=== PATIENT | male | born 1960 | race Caucasian/White ===

== ENCOUNTER → 2018-02-16 | Outpatient (CLI) | payer OTHER ==
[2018-02-16 11:00] LABS: BASOPHILS ABSOLUTE AUTO 0.09 K/mm3 (0.00-0.23); BASOPHILS PERCENT AUTO 1 % (0-2); EOSINOPHILS ABSOLUTE AUTO 0.05 K/mm3 (0.00-0.68); EOSINOPHILS PERCENT AUTO 1 % (0-6); Hematocrit 42.5 % (37.0-53.0); Hemoglobin 14.7 g/dL (13.5-17.5); IMMATURE GRAN ABSOLUTE AUTO 0.03 K/mm3 (0.00-0.10); IMMATURE GRAN PERCENT AUTO 0 % (0-1); LYMPHOCYTES ABSOLUTE AUTO 1.33 K/mm3 (0.84-5.20); LYMPHOCYTES PERCENT AUTO 13 % (21-46); MONOCYTES PERCENT AUTO 6 % (4-13); Mean Corpuscular HGB 32.6 pg (26.0-34.0); Mean Corpuscular HGB Conc 34.6 g/dL (31.5-36.5); Mean Corpuscular Volume 94 fL (80-100); Mean Platelet Volume 9.2 fL (9.1-12.4); NEUTROPHILS ABSOLUTE AUTO 7.79 K/mm3 (1.96-9.15); NEUTROPHILS PERCENT AUTO 79 % (41-73); Platelet Count 279 K/mm3 (150-400); RDW Coefficient Variation 12.4 % (11.7-14.2); Red Blood Cell Count 4.51 M/mm3 (4.30-5.90); White Blood Cell Count 9.89 K/mm3 (4.00-11.30)
[2018-02-16 11:19] LABS: Alanine Aminotransfer (ALT/SGP 20 U/L (12-78); Albumin/Globulin Ratio 1.4 (0.8-1.8); Alk Phos 85 U/L (40-126); Anion Gap 7 mmol/L (6-16); Aspartate Aminotrans (AST/SGOT 14 U/L (12-37); Bilirubin, Total 0.4 mg/dL (0.1-1.0); Blood Urea Nitrogen 14 mg/dL (8-24); CO2, Blood 28 mmol/L (21-32); Calcium, Blood 9.4 mg/dL (8.5-10.1); Chloride, Blood 105 mmol/L (98-108); Creatinine, Blood 1.08 mg/dL (0.60-1.20); Globulin, Blood 2.8 g/dL (2.2-4.0); Glomerular Filtration Rate >60 (60-); Glucose, Blood 133 mg/dL (70-99); Potassium, Blood 4.2 mmol/L (3.5-5.5); Sodium, Blood 140 mmol/L (136-145); Total Protein, Blood 6.8 g/dL (6.4-8.2)
[2018-02-16 11:20] LABS: Troponin I <0.017 ng/mL (0.000-0.040)
== END | disposition home or self-care (01) ==
LOC: LAB SHORT 10:56 → LAB EV 10:56
PROVIDERS: Family Medicine
DX: R07.1 Chest pain on breathing (principal)
CPT/HCPCS: 80053; 84484; 85025; 85379

== ENCOUNTER 2020-05-21 09:27 | Inpatient (IN) | payer OTHER ==
[~2020-05-21] VITALS: Ht 182.9 cm; Wt 58.0 kg
[2020-05-21 09:50] LABS: Chloride (POC) 106 mmol/L (98-108); Glucose (ISTAT POC) 137 mg/dL (70-99); Potassium (POC) 3.9 mmol/L (3.5-5.5); Sodium (POC) 142 mmol/L (135-148); Total CO2 (POC) 26 mmol/L (21-32)
[2020-05-21 10:21] LABS: BASOPHILS ABSOLUTE AUTO 0.12 K/mm3 (0.00-0.23); BASOPHILS PERCENT AUTO 1 % (0-2); EOSINOPHILS ABSOLUTE AUTO 0.16 K/mm3 (0.00-0.68); EOSINOPHILS PERCENT AUTO 1 % (0-6); Hematocrit 43.7 % (37.0-53.0); Hemoglobin 14.1 g/dL (13.5-17.5); IMMATURE GRAN ABSOLUTE AUTO 0.08 K/mm3 (0.00-0.10); IMMATURE GRAN PERCENT AUTO 1 % (0-1); LYMPHOCYTES ABSOLUTE AUTO 2.34 K/mm3 (0.84-5.20); LYMPHOCYTES PERCENT AUTO 14 % (21-46); MONOCYTES ABSOLUTE AUTO 0.78 K/mm3 (0.16-1.47); MONOCYTES PERCENT AUTO 5 % (4-13); Mean Corpuscular HGB 31.9 pg (26.0-34.0); Mean Corpuscular HGB Conc 32.3 g/dL (31.5-36.5); Mean Corpuscular Volume 99 fL (80-100); Mean Platelet Volume 9.9 fL (9.1-12.4); NEUTROPHILS ABSOLUTE AUTO 13.41 K/mm3 (1.96-9.15); NEUTROPHILS PERCENT AUTO 79 % (41-73); Platelet Count 244 K/mm3 (150-400); RDW Coefficient Variation 12.1 % (11.7-14.2); RDW Standard Deviation 44.1 fL (35.1-46.3); Red Blood Cell Count 4.42 M/mm3 (4.30-5.90); White Blood Cell Count 16.89 K/mm3 (4.00-11.30)
[2020-05-21 10:28] LABS: Magnesium, Blood 2.2 mg/dL (1.6-2.4)
[2020-05-21 10:29] LABS: Anion Gap 8 mmol/L (6-16); Blood Urea Nitrogen 17 mg/dL (8-24); Bun/Creatinine Ratio 17.3 (12.0-20.0); CO2, Blood 23 mmol/L (21-32); Calcium, Blood 8.6 mg/dL (8.5-10.1); Chloride, Blood 111 mmol/L (98-108); Creatinine, Blood 0.98 mg/dL (0.60-1.20); Glomerular Filtration Rate >60 (60-); Glucose, Blood 138 mg/dL (70-99); Potassium, Blood 4.2 mmol/L (3.5-5.5); Sodium, Blood 142 mmol/L (136-145)
[2020-05-21] MEDS ORDERED: Methimazole5 MG PO (11:15)
[2020-05-21 11:26] LABS: Free Thyroxine 0.99 ng/dL (0.70-1.60)
[2020-05-21 11:29] LABS: Thyroid Stimulating Hormone 2.48 uIU/mL (0.360-4.800)
[2020-05-21] MEDS ORDERED: ROPINIROLE HCL1 MG PO (12:41)
[2020-05-21] MEDS ORDERED: TRAZ50 PO (12:41)
--- NOTE | 2020-05-21 18:04 | NUR ---
SHIFT SUMMARY PT AXO, PLEASANT AND COOPERATIVE WITH CARE. PT ON TELE, SINUS DEE AT 45. PT UP TO BATHROOM WITH SBA. PT BECAME DIZZY WHEN HE TURNED AROUND TO SIT ON BED. PT DENIES PAIN. SOB WITH EXERTION. 98-100% ON RA. PT ARRIVED TO ROOM AT 1400 VIA GURNEY. ADMIT COMPLETE. PT STATES THAT HE WANTS TO BE FULL CODE. PATIENT STATES THAT AT HOME HE IS "PRETTY HEALTHY AND ACTIVE." BED IN LOW POSITION, CALL LIGHT WITHIN REACH, SPOUSE PRESENT IN ROOM AT THIS TIME.
--- NOTE | 2020-05-21 22:41 | NUR ---
PATIENT HAS HAD HICCUPS FOR APPROX 3 HOURS. ASKING FOR MEDICATION TO STOP THEM. SPOKE WITH HOSPITALIST AND SHE WAS CONCERNED THAT SINCE THE PATIENT WAS ADMITTED FOR DIZZINESS THAT [facility] WOULDN'T BE A SAFE CHOICE FOR HIM. PATIENT ALSO REQUESTED TRAZADONE 50MG FOR SLEEP. THIS MEDICATION WAS NOT ON HIS HOME MED REC. ONE TIME DOSE ORDERED. WILL CONTINUE CLOSE MONITORING
--- NOTE | 2020-05-22 02:52 | NUR ---
EMT P SUMMARY Patient slept well after approximately 2200 when he was able to get his trazodone for sleep and his hiccups ended simultaneously. Neuro checks remain unchanged with only intermittant dizziness remaining. Patient was a little hesitant to call for assistance to get to bathroom as he was still having intermittant dizzy spells, but thought "he could feel them coming on". it was explained that at this point, we are still working on why he was having them, and that it was not saf for him to ambulate on his own. No complaints of pain or discomfort overnight
[2020-05-22 11:00] LABS: BASOPHILS ABSOLUTE AUTO 0.04 K/mm3 (0.00-0.23); BASOPHILS PERCENT AUTO 0 % (0-2); EOSINOPHILS ABSOLUTE AUTO 0.06 K/mm3 (0.00-0.68); EOSINOPHILS PERCENT AUTO 1 % (0-6); Hematocrit 37.5 % (37.0-53.0); Hemoglobin 12.5 g/dL (13.5-17.5); IMMATURE GRAN ABSOLUTE AUTO 0.04 K/mm3 (0.00-0.10); IMMATURE GRAN PERCENT AUTO 0 % (0-1); LYMPHOCYTES PERCENT AUTO 16 % (21-46); MONOCYTES PERCENT AUTO 6 % (4-13); Mean Corpuscular HGB 32.1 pg (26.0-34.0); Mean Corpuscular HGB Conc 33.3 g/dL (31.5-36.5); Mean Platelet Volume 9.3 fL (9.1-12.4); NEUTROPHILS ABSOLUTE AUTO 8.02 K/mm3 (1.96-9.15); NEUTROPHILS PERCENT AUTO 77 % (41-73); Platelet Count 216 K/mm3 (150-400); RDW Coefficient Variation 12.2 % (11.7-14.2); RDW Standard Deviation 43.2 fL (35.1-46.3); Red Blood Cell Count 3.89 M/mm3 (4.30-5.90); White Blood Cell Count 10.46 K/mm3 (4.00-11.30)
[2020-05-22 11:14] LABS: Mean Corpuscular Volume 96 fL (80-100)
[2020-05-22 11:28] LABS: Alanine Aminotransfer (ALT/SGP 23 U/L (12-78); Albumin, Blood 3.4 g/dL (3.4-5.0); Albumin/Globulin Ratio 1.4 (0.8-1.8); Alk Phos 71 U/L (50-136); Anion Gap 5 mmol/L (6-16); Aspartate Aminotrans (AST/SGOT 12 U/L (12-37); Bilirubin, Total 0.8 mg/dL (0.1-1.0); Blood Urea Nitrogen 15 mg/dL (8-24); Bun/Creatinine Ratio 14.9 (12.0-20.0); CO2, Blood 27 mmol/L (21-32); Calcium, Blood 8.4 mg/dL (8.5-10.1); Chloride, Blood 109 mmol/L (98-108); Creatinine, Blood 1.01 mg/dL (0.60-1.20); Globulin, Blood 2.4 g/dL (2.2-4.0); Glomerular Filtration Rate >60 (60-); Glucose, Blood 113 mg/dL (70-99); Potassium, Blood 3.9 mmol/L (3.5-5.5); Sodium, Blood 141 mmol/L (136-145); Total Protein, Blood 5.8 g/dL (6.4-8.2); Troponin I <0.015 ng/mL (0.000-0.040)
--- NOTE | 2020-05-22 12:21 | NUR ---
echocardiogram complete
[2020-05-22] MEDS ORDERED: ASPI81CH PO (19:14)
[2020-05-22] MEDS ORDERED: MECL25 PO (19:15)
--- NOTE | 2020-05-22 19:49 | NUR ---
DISCHARGE NOTE- PT WAS DISCHARGED HOME COLIN. MEDS FAXED TO [facility] ON [address] PER PT REQUEST. PT AND SPOUSE WERE GIVEN VERBAL AND WRITTEN DISCHARGE INSTRUCTIONS AND ACKNOWLEDGED UNDERSTANDING OF THEM. NO S&S OF DISTRESS VISIBLE AT THE TIME OF DISCHARGE. PT SPOUSE WALKED OUT AND PT WAS ESCORTED OUT VIA WC BY THE SHIP RUNNER. NO FURTHER QUESTIONS AT THE TIME OF DISCHARGE. IV AND TELE DC'D PRIOR TO DISCHARGE.
== END 2020-05-22 19:20 | disposition home or self-care (01) | DRG 149 ==
LOC: ER 09:27 → MEDS 12:36
PROVIDERS: Emergency Medicine; Internal Medicine Endocrinology, Diabetes & Metabolism; ADMIT Internal Medicine Gastroenterology
DX: H81.10 Benign paroxysmal vertigo, unspecified ear (principal); E05.01 Thyrotoxicosis with diffuse goiter with thyrotoxic crisis or storm; F17.210 Nicotine dependence, cigarettes, uncomplicated; G25.81 Restless legs syndrome; H55.00 Unspecified nystagmus; J44.9 Chronic obstructive pulmonary disease, unspecified; I95.9 Hypotension, unspecified; E86.0 Dehydration; R11.2 Nausea with vomiting, unspecified; R00.1 Bradycardia, unspecified
CPT/HCPCS: 36415; 70450; 80047; 80048; 80053; 83735; 84439; 84443; 84484; 85014; 85025; 93005; 93010; 93306; 93880; 96361; 96374; 96375; 99285-25; A9270-GY; J0780; J1200; J2405; J7030; J7120; U0002

== ENCOUNTER → 2021-04-16 | Outpatient (CLI) | payer OTHER ==
[~2021-04-16] MED LIST: ASPI81CH PO; MECL25 PO; Methimazole5 MG PO; ROPINIROLE HCL1 MG PO; TRAZ50 PO
[2021-04-20 14:10] LABS: COTININE <10.0 ng/mL (.); NICOTINE <10.0 ng/mL (.)
== END | disposition home or self-care (01) ==
LOC: LAB 10:03 → LAB SHORT 10:03
PROVIDERS: Otolaryngology
DX: F17.201 Nicotine dependence, unspecified, in remission (principal)
CPT/HCPCS: G0480

== ENCOUNTER 2024-07-19 09:26 | Day surgery (SDC) | payer MEDICARE, OTHER ==
[~2024-07-19] VITALS: Ht 170.2 cm; Wt 57.2 kg
[2024-07-19] VITALS (17 sets, daily range): BP systolic 96–135; BP diastolic 60–75
[~2024-07-19 09:26] MED LIST changes: +Lactated Ringer's 1,000 ML IV SCH
--- NOTE | 2024-07-19 09:59 | NUR ---
History, Chart, Medications and Allergies reviewed before start of procedure. Patient confirms NPO status and agrees with scheduled surgery. Patient states colon prep results clear. Pre-Op teaching done. Pt verbalizes understanding. Patient States Post-Procedure ride home has been arranged.
[2024-07-19] MEDS ORDERED: propofoL 20 ML IV ONE (10:37)
--- NOTE | 2024-07-19 10:40 | NUR ---
07/19/24 1040 Nita Vizcaino History, Chart, Medications and Allergies reviewed before start of procedure. Patient confirms NPO status and agrees with scheduled surgery. HISTORY, CHART, MEDICATIONS AND ALLERGIES REVIEWED BEFORE START OF PROCEDURE. PATIENT CONFIRMS NPO STATUS AND AGREES WITH SCHEDULED PROCEDURE. 3-LEAD EKG REVIEWED WITH PHYSICIAN PRIOR TO START OF PROCEDURE. MONITOR INTACT WITH CONTINUOUS PULSE OXIMETRY,CAPNOGRAPHY, 3-LEAD EKG, INTERMITTENT BP. SUPPLEMENTAL O2 TO BE TITRATED THROUGHOUT PROCEDURE TO MAINTAIN O2 SATURATION ABOVE 90%. PATIENT DETERMINED TO BE ASA APPROPRIATE FOR PROPOFOL SEDATION PRIOR TO START OF PROCEDURE BY DR. DANIELS. MALLAMPATI CLASS 1 AIRWAY: COMPLETE VISULATIZATION OF THE SOFT PALATE.
[2024-07-19] MEDS ORDERED: Atropine Sulfate 0.1 MG/ML 10ML SYR IV ONE (10:55)
--- NOTE | 2024-07-19 11:35 | NUR ---
DISCHARGE NOTE PT A&OX4, BREATHING RA, VSS, BRADYCARDIA AT BASELINE. PT TOLERATING PO FLUIDS NO COMPLAINTS. ABDOMEN SOFT AND NON TENDER. Patient up to Ambulate independently. Gait steady. Discharge instructions reviewed with patient. Patient verbalizes understanding. Copy given to patient to take home. Discharged via wheelchair to private car for ride home.
== END 2024-07-19 11:33 | disposition home or self-care (01) ==
LOC: ORSCMMR 09:26 → ORD 10:30 → ORSCMMR 10:30
PROVIDERS: Internal Medicine Gastroenterology
PROC: 0DBN8ZX Excision of Sigmoid Colon, Via Natural or Artificial Opening Endoscopic, Diagnostic (ICD-10-PCS; principal; 2024-07-19 10:30)
DX: R19.5 Other fecal abnormalities (principal); D12.5 Benign neoplasm of sigmoid colon; K63.5 Polyp of colon; Z86.010 Personal history of colon polyps; E05.00 Thyrotoxicosis with diffuse goiter without thyrotoxic crisis or storm; G25.81 Restless legs syndrome; F32.A Depression, unspecified; Z79.82 Long term (current) use of aspirin; Z79.899 Other long term (current) drug therapy; F17.210 Nicotine dependence, cigarettes, uncomplicated
CPT/HCPCS: 88305; J2704; J7120

== ENCOUNTER → 2025-07-19 | Outpatient (CLI) | payer MEDICARE ==
[~2025-07-19] MED LIST changes: -Lactated Ringer's 1,000 ML IV SCH
[2025-07-19 18:41] LABS: Campylobacter Sp Not Detected (NOT DETECT); E. Coli O157 Not Detected (NOT DETECT); Enteroaggregative E. coli-EAEC Not Detected (NOT DETECT); Enteropathogenic E. coli-EPEC Not Detected (NOT DETECT); Enterotoxigenic E. coli-ETEC Not Detected (NOT DETECT); Salmonella Sp Not Detected (NOT DETECT); Shiga Toxin-prod E. coli-STEC Not Detected (NOT DETECT); Shigella/Enteroin E. coli-EIEC Not Detected (NOT DETECT); Vibrio Sp Not Detected (NOT DETECT)
[2025-07-20 09:59] LABS: Stool Occult Blood Guaiac 1 Neg (Neg)
[2025-07-22 12:08] LABS: PANCREATIC ELASTASE,FECAL 337 ug/g (>=100)
[2025-07-22 12:27] LABS: CALPROTECTIN,FECAL 77 ug/g (<=49)
== END | disposition home or self-care (01) ==
LOC: LAB 07:00 → LAB SHORT 07:00
PROVIDERS: Family Medicine
DX: K52.9 Noninfective gastroenteritis and colitis, unspecified (principal)
CPT/HCPCS: 82272; 82653; 83993; 87507

== ENCOUNTER 2025-09-23 08:30 | Day surgery (SDC) | payer MEDICARE ==
[2025-09-23] VITALS (22 sets, daily range): BP systolic 82–129; BP diastolic 59–81
[~2025-09-23] VITALS: Ht 167.6 cm; Wt 57.9 kg
[~2025-09-23 08:30] MED LIST changes: +METHI10 PO; +ROPI1 PO; +SERT50 PO
[2025-09-23] MEDS ORDERED: Glycopyrrolate 0.2 MG/ML 1MLVIAL ONE (08:56)
--- NOTE | 2025-09-23 09:41 | NUR ---
09/23/25 0941 Nita Vizcaino CONFIRMED AND REVIEWED H&P, MEDCICATIONS, ALLERGIES, MEDICAL HISTORY, RESPIRATORY HISTORY, VITAL SIGNS, 3-LEAD EKG, CONSENTS, AND PHYSICIAN ORDERS. PATIENT CONFIRMS NPO STATUS AND AGREES WITH SCHEDULED PROCEDURE. MONITOR INTACT WITH CONTINUOUS PULSE OXIMETRY, CAPNOGRAPHY, 3-LEAD EKG, INTERMITTENT BP. SUPPLEMENTAL O2 TO BE TITRATED THROUGHOUT PROCEDURE TO MAINTAIN O2 SATURATION ABOVE 90%. PATIENT DETERMINED TO BE ASA APPROPRIATE FOR PROPOFOL SEDATION PRIOR TO START OF PROCEDURE BY DR. DANIELS. MALLAMPATI CLASS 1 AIRWAY: COMPLETE VISULATIZATION OF THE SOFT PALATE.
--- NOTE | 2025-09-23 10:42 | NUR ---
TO STEP POST PROCEDURE. A/O X 3, DENIES PAIN, NAUSEA, SOB. ITALO PO WELL. VERBALIZED UNDERSTANDING OF DC INSTRUCTIONS. DC'D IV INTACT. DC'D VIA WC TO PRIVATE CAR WITH CARDIAC CATHETERIZATION TECHNOLOGIST. EDUCATED REGARDING DC INSTRUCTIONS.
== END 2025-09-23 23:00 | disposition home or self-care (01) ==
LOC: ORSCMMR 08:30 → ORD 09:30 → ORSCMMR 23:00
PROVIDERS: Internal Medicine Gastroenterology
PROC: 0DBK8ZX Excision of Ascending Colon, Via Natural or Artificial Opening Endoscopic, Diagnostic (ICD-10-PCS; principal; 2025-09-23 09:30)
PROC: 0DBL8ZX Excision of Transverse Colon, Via Natural or Artificial Opening Endoscopic, Diagnostic (ICD-10-PCS; principal; 2025-09-23 09:30)
PROC: 0DBN8ZX Excision of Sigmoid Colon, Via Natural or Artificial Opening Endoscopic, Diagnostic (ICD-10-PCS; principal; 2025-09-23 09:30)
PROC: 0DBM8ZX Excision of Descending Colon, Via Natural or Artificial Opening Endoscopic, Diagnostic (ICD-10-PCS; principal; 2025-09-23 09:30)
PROC: 0DBP8ZX Excision of Rectum, Via Natural or Artificial Opening Endoscopic, Diagnostic (ICD-10-PCS; principal; 2025-09-23 09:30)
PROC: 0DBB8ZX Excision of Ileum, Via Natural or Artificial Opening Endoscopic, Diagnostic (ICD-10-PCS; principal; 2025-09-23 09:30)
DX: K62.5 Hemorrhage of anus and rectum (principal); R19.7 Diarrhea, unspecified; Z85.46 Personal history of malignant neoplasm of prostate; Z86.0102 Personal history of hyperplastic colon polyps; Z86.0101 Personal history of adenomatous and serrated colon polyps; E05.00 Thyrotoxicosis with diffuse goiter without thyrotoxic crisis or storm; G25.81 Restless legs syndrome; Z79.899 Other long term (current) drug therapy
CPT/HCPCS: 88305; J0461; J2704; J7120